=== PATIENT | male | born 1940 | race Caucasian/White ===

== ENCOUNTER 2017-10-07 02:33 | Day surgery (SDC) | payer MEDICARE, OTHER ==
[~2017-10-07] VITALS: Ht 177.8 cm; Wt 86.2 kg
[~2017-10-07 02:33] MED LIST: CALC-1033 PO; EZET1TAB64 PO; FAM20 PO; IBU600 PO; LEV500 PO; LOR5/325 PO; OCU PO; PHENA200 PO; TAMS0.4C70 PO; VIT1CAPS34 PO
--- NOTE | 2017-10-07 07:29 | Post Operative Progress Note ---
Post Operative Progress Note Date: October 07, 2017 Time: 09:35 Surgeon: michelle Anesthesia: dr wayne Pre-Op Diagnosis: screening colonoscopy and symptomatic hemorrhoids Post-Op Diagnosis: sigmoid diverticulosis Procedure(s): colonoscopy and rubber band ligation of internal hemorrhoids time 2 right anterior and left lateral OMAR PENA MD October 07, 2017 07:29
--- NOTE | 2017-10-07 07:29 | Short(Outpt) Discharge Summary ---
Discharge Summary Reason for Hosp/Final Diag: (1) Encounter for screening colonoscopy Hospital Course & Plan: sigmoid diverticulosis and rubber band ligation of internal hemorrhoids Departure Discharge to: Home Discharge Instructions Home Meds Reported Medications Calc/D3/Mag/Zn/Asbestos Wire Finisher/Fili/[place] (CALCIUM 600 MG PLUS VIT D TAB) 1 Each Tablet, 1 EACH PO 10/04/17 Tamsulosin Hcl (TAMSULOSIN HCL) 0.4 Mg Cap.er.24h, 0.4 MG PO DAILY, CAP 10/04/17 Vit A/Vit C/Vit E/Zinc/Copper (PRESERVISION AREDS SOFTGEL) 1 Each Capsule, 1 EACH PO BID, CAPSULE 10/04/17 Discontinued Reported Medications Levofloxacin (Levaquin) 500 Mg Tab, 500 MG PO QDAY, #15 0 Refills 11/19/08 Ibuprofen (Motrin) 600 Mg Tab, 600 MG PO TID Y, #10 0 Refills TAKE WITH FOOD 11/19/08 Phenazopyridine Hcl (Pyridium) 200 Mg Tab, 200 MG PO TID, #10 0 Refills 11/19/08 Famotidine (Pepcid) 20 Mg Tab, 20 MG PO BID, #15 0 Refills 11/19/08 Acetaminophen/Hydrocodone (Lortab 5/325 Mg) 5 Mg/325 Mg Tab, 1 TAB PO Q4-6H Y, # 15 0 Refills DO NOT DRINK ALCOHOL OR DRIVE WHILE TAKING THIS MED. 11/19/08 Beta-Carotene(A) W-C & E/Min (Ocuvite Tablet) 1 Ea Tab, 1 EA PO QDAY, 0 Refills 11/14/08 Diet: High Fiber Activity: As Tolerated OMAR PENA MD October 07, 2017 07:29
[2017-10-07 07:50] VITALS: BP 132/99
[2017-10-07] MEDS ORDERED: LIDOCAINE/SOD BICARB 8.4% SYR ID ONE (08:30)
[2017-10-07] MEDS ORDERED: NORMOSOL R SOLN(*) 1000 ML BAG 1,000 ML IV PRN (08:30)
[2017-10-07 09:35] VITALS: BP 107/75
[2017-10-07 09:50] VITALS: BP 111/79
[2017-10-07 10:19] VITALS: BP 133/86
[2017-10-07 10:21] VITALS: BP 132/87
[2017-10-07 10:22] VITALS: BP 129/90
--- NOTE | 2017-10-07 16:06 | OPERATIVE REPORT 1 ---
EVENT DATE: October 07, 2017 SURGEON: Enoch Owens MD ANESTHESIOLOGIST: Yoandy Clarke MD ANESTHESIA: Sedation. PREOPERATIVE DIAGNOSES 1. Screening colonoscopy. 2. Symptomatic internal hemorrhoids. POSTOPERATIVE DIAGNOSES 1. Sigmoid diverticulosis. 2. Large internal hemorrhoids. PROCEDURES PERFORMED Colonoscopy with rubber band ligation of internal hemorrhoids times two. DESCRIPTION OF PROCEDURE Patient was placed in the left lateral decubitus position and given intravenous sedation. Rectal exam was unremarkable. No palpable masses. Flexible colonoscope was inserted and advanced to the cecum. He had an excellent bowel prep. The ileocecal valve and base of the cecum were identified. Scope was slowly withdrawn. Care was taken to look behind the haustral folds. No abnormalities were noted in the cecum, right colon, transverse, or descending colon. He had diverticula in the sigmoid colon. No evidence of diverticulitis. Rectum was normal. Scope was retroflexed, and that was normal. We then placed the operating anoscope. He had two large hemorrhoidal complexes in the right anterior and left lateral. We put rubber bands above these. Patient tolerated the procedure well. No apparent complications. Repeat colonoscopy in 10 years. [facility]
== END 2017-10-07 11:25 | disposition home or self-care (01) ==
LOC: OR 02:33
PROVIDERS: ATTEND Surgery
DX: Z12.11 Encounter for screening for malignant neoplasm of colon (principal); K57.30 Diverticulosis of large intestine without perforation or abscess without bleeding; K64.8 Other hemorrhoids